=== PATIENT | male | born 1980 | race Caucasian/White ===

== ENCOUNTER 2016-04-26 20:16 | Emergency (ER) | payer BC ==
[2016-04-26] MEDS ORDERED: Piperacillin/Tazobactam 4.5 GM in Sodium Chloride 0.9% 100 ML IV ONE (20:35)
--- NOTE | 2016-04-26 20:38 | EDM.PDOC ---
ED HPI GENERAL MEDICAL PROBLEM - General Stated Complaint: LACERATION LT INDEX FINGER Time Seen by Provider: 04/26/16 20:34 Source of Information: Reports: Patient History Limitations: Reports: No limitations - History of Present Illness INITIAL COMMENTS - FREE TEXT/NARRATIVE: HISTORY AND PHYSICAL: History of present illness: [] 35-year-old male with no significant past history now presents to the emergency department after laceration to the pad of his index finger. Patient's tetanus was more than 5 years ago. He tripped tried of present in the wall and was routed sticking out and it cut the tip of his finger per no other injury. [place] blood loss by history Review of systems: As per history of present illness and below otherwise all systems reviewed and negative. Past medical history: As per history of present illness and as reviewed below otherwise noncontributory. Surgical history: As per history of present illness and as reviewed below otherwise noncontributory. Social history: No reported history of drug or alcohol abuse. Family history: As per history of present illness and as reviewed below otherwise noncontributory. Physical exam: HEENT: Atraumatic, normocephalic, pupils reactive, negative for conjunctival pallor or scleral icterus, mucous membranes moist, throat clear, neck supple, nontender, trachea midline. Lungs: Clear to auscultation, breath sounds equal bilaterally, chest nontender. Heart: S1S2, regular, negative for clicks, rubs, or JVD. Abdomen: Soft, nondistended, nontender. Negative for masses or hepatosplenomegaly. Negative for costovertebral tenderness. Pelvis: Stable nontender. Genitourinary: Deferred. Rectal: Deferred. Extremities: Atraumatic, negative for cords or calf pain. Neurovascular unremarkable. Neuro: Awake, alert, oriented. Cranial nerves II through XII unremarkable. Cerebellum unremarkable. Motor and sensory unremarkable throughout. Exam nonfocal. Diagnostics: [] Therapeutics: [] Impression: [] Plan: [] Definitive disposition and diagnosis as appropriate pending reevaluation and review of above. Left 2-Index finger Pain Score (Numeric/FACES): 3 - Related Data Allergies Allergy/AdvReac Type Severity Reaction Status Date / Time No Known Allergies Allergy Verified 12/30/14 16:02 Home Meds: Home Meds . [No Known Home Meds] 04/26/16 [History] Past Medical History - Past Surgical History Other Male Surgeries/Procedures: vasectomy Social & Family History - Tobacco Use Smoking Status *Q: Light Tobacco Smoker Years of Tobacco use: 10 Packs/Tins Daily: 0.2 - Alcohol Use Days Per Week of Alcohol Use: 5 Number of Drinks Per Day: 2 Total Drinks Per Week: 10 - Recreational Drug Use Recreational Drug Use: No ED ROS GENERAL - Review of Systems Review Of Systems: See Below (Per history of present illness) ED EXAM, GENERAL - Physical Exam Exam: See Below (Per history of present illness) Course - Vital Signs Text/Narrative:: This with laceration. Confined as a flap wound to the pad of his left index finger. 4.2 centimeter total length oriented in a flap. Procedure: Repair of 4.2 cm laceration left index finger distal phalange palmar aspect. Digit anesthetized with 1% lidocaine with a digital block. Good anesthesia. Wound irrigated and repaired with 9 interrupted sutures of 5-0 Prolene. Patient tolerated well no complications good approximation and hemostasis. Sterile dressing applied. Patient aware to follow up with PCP for wound check in 2 days and suture removal in 10 days Last Recorded V/S: Last Vital Signs Temp 36.8 C 04/26/16 22:07 Pulse 63 04/26/16 22:07 Resp 16 04/26/16 22:07 BP 127/81 04/26/16 22:07 Pulse Ox 98 04/26/16 22:07 - Orders/Labs/Meds Orders: Active Orders 24 hr Category Date Time Status Vaccines to be Administered [RC] PER UNIT ROUTINE Care 04/26/16 20:53 Active Meds: Medications Discontinued Medications Generic Name Dose Route Start Last Admin Trade Name Deepti PRN Reason Stop Dose Admin Bacitracin 1 dose 04/26/16 20:52 04/26/16 21:45 Bacitracin Oint 1 Gm TOP 04/26/16 20:53 1 dose ONETIME ONE Administration Diphtheria/Tetanus/Acell Pertussis 0.5 ml 04/26/16 20:52 04/26/16 21:46 Adacel IM 04/26/16 20:53 0.5 ml .ONCE ONE Administration Piperacillin Sod/Tazobactam 100 mls @ 100 mls/hr 04/26/16 20:35 04/26/16 21: 59 Sod 4.5 gm/ Sodium Chloride IV 04/26/16 21:34 Not Given ONETIME ONE Lidocaine HCl 20 ml 04/26/16 20:52 04/26/16 21:45 Xylocaine 1% INJECT 04/26/16 20:53 20 ml ONETIME ONE Administration Departure - Departure Time of Disposition: 21:42 Disposition: Home, Self-Care 01 Condition: good Clinical Impression: Laceration Instructions: Laceration Care, Adult Referrals: PCP,None [Primary Care Provider] - Forms: ED Department Discharge Additional Instructions: Her laceration was repaired today with sutures that need to be removed in 10 days. Follow up with your doctor for a wound check in 2 days. Watch for signs of infection worsening redness increasing swelling and pus drainage. If these occur return to the emergency department or see your doctor immediately for reevaluation and further treatment including antibiotics as needed. Motrin and Tylenol as needed for pain. - My Orders Last 24 Hours: My Active Orders 04/26/16 20:53 Vaccines to be Administered [RC] PER UNIT ROUTINE - Assessment/Plan Last 24 Hours: My Active Orders 04/26/16 20:53 Vaccines to be Administered [RC] PER UNIT ROUTINE
[2016-04-26] MEDS ORDERED: Bacitracin Oint 1 GM U/D Packet TOP ONE (20:52)
[2016-04-26] MEDS ORDERED: Diphtheria,Pertussis(Acell),Tetanus Vaccine 0.5 ML Syringe IM ONE (20:52)
[2016-04-26] MEDS ORDERED: Lidocaine 1% 20 ML MDV INJECT ONE (20:52)
[2016-04-26 22:09] VITALS: BP 127/81
== END 2016-04-26 22:09 | disposition home or self-care (01) ==
LOC: MW.ED 20:16
DX: S61.211A Laceration without foreign body of left index finger without damage to nail, initial encounter (principal); Z23 Encounter for immunization; F17.210 Nicotine dependence, cigarettes, uncomplicated; W45.8XXA Other foreign body or object entering through skin, initial encounter
CPT/HCPCS: 12002; 90471; 90715; 99282; 99282-25

== ENCOUNTER 2017-02-20 07:23 | Day surgery (SDC) | payer BC ==
[2017-02-20] MEDS ORDERED: Bupivacaine 25%/EPINEPHrine/PF 30 ML ONE (07:26)
[2017-02-20] MEDS ORDERED: fentaNYL 100 MCG/2 ML SDV ONE (07:30)
[2017-02-20] MEDS ORDERED: Lidocaine 2% 5 ML SDV ONE ×2 (07:30→09:07)
[2017-02-20] MEDS ORDERED: Propofol 200 MG/20 ML SDV ONE ×2 (07:30→09:07)
[2017-02-20] MEDS ORDERED: Midazolam 1 MG/ML 2 ML SDV ONE (07:30)
[2017-02-20] MEDS ORDERED: Ketorolac 30 MG/ML SDV ONE (07:31)
[2017-02-20] MEDS ORDERED: Ondansetron 4 MG/2 ML SDV ONE (07:31)
--- NOTE | 2017-02-20 07:57 | PCM.PREANE ---
Preanesthetic Assessment - Anesthesia/Transfusion/Family Hx Anesthesia History: Prior Anesthesia Without Reaction Family History of Anesthesia Reaction: No Transfusion History: No Prior Transfusion(s) Intubation History: Unknown - Review of Systems General: No Symptoms Pulmonary: No Symptoms Cardiovascular: No Symptoms Gastrointestinal: No Symptoms, Nausea Other: Reports: None - Physical Assessment Height: 1.73 m Weight: 87.543 kg ASA Class: 1 Mental Status: Alert & Oriented x3 Airway Class: Mallampati = 2 Dentition: Reports: Normal Dentition Thyro-Mental Finger Breadths: 3 Mouth Opening Finger Breadths: 3 ROM/Head Extension: Full Lungs: Clear to Auscultation, Normal Respiratory Effort Cardiovascular: Regular Rate, Regular Rhythm - Allergies Allergies/Adverse Reactions: Allergies Allergy/AdvReac Type Severity Reaction Status Date / Time No Known Allergies Allergy Verified 02/17/17 13:23 - Blood Blood Available: Yes - Anesthesia Plan Pre-Op Medication Ordered: None - Acknowledgements Anesthesia Type Planned: MAC Pt an Appropriate Candidate for the Planned Anesthesia: Yes Alternatives and Risks of Anesthesia Discussed w Pt/Guardian: Yes Pt/Guardian Understands and Agrees with Anesthesia Plan: Yes PreAnesthesia Questionnaire Other HEENT History: wears glasses Neurological History: Reports: Concussion - Infectious Disease History Infectious Disease History: Reports: Chicken Pox - Past Surgical History HEENT Surgical History: Reports: Oral Surgery Other HEENT Surgeries/Procedures: wisdom teeth Male Surgical History: Reports: Vasectomy Musculoskeletal Surgical History: Reports: Other (See Below) Other Musculoskeletal Surgeries/Procedures:: surgical intervention for snake bite right hand - SUBSTANCE USE Smoking Status *Q: Current Every Day Smoker Tobacco Use Within Last Twelve Months: Smokeless Tobacco Days Per Week of Alcohol Use: 5 Number of Drinks Per Day: 2 Total Drinks Per Week: 10 Recreational Drug Use History: No - HOME MEDS Home Medications: Home Meds . [No Known Home Meds] 04/26/16 [History] - CURRENT (IN HOUSE) MEDS Current Meds: Current Medications Hydrocodone Bitart/Acetaminophen ([place] 325-5 Mg) 1 tab PO Q4H PRN PRN Reason: Pain Bupivacaine HCl/Epinephrine Bitart (Marcaine 0.25%/Epinephrine 1:200,000) 10 ml INJECT ONETIME ONE Stop: 02/20/17 08:01 Cefazolin Sodium/Dextrose 2 gm (/ Premix) 50 mls @ 100 mls/hr IV ONETIME ONE Stop: 02/20/17 08:29 Lactated Ringer's (Ringers, Lactated) 1,000 mls @ 125 mls/hr IV ASDIRECTED KATHIA Last Admin: 02/20/17 07:46 Dose: 125 mls/hr Discontinued Medications Fentanyl (Sublimaze) Confirm Administered Dose 100 mcg .ROUTE .STK-MED ONE Stop: 02/20/17 07:31 Bupivacaine HCl/Epinephrine Bitart (Sensorc Mpf 0.25%-Epi 1:[id number]) Confirm Administered Dose 30 mls @ as directed .ROUTE .STK-MED ONE Stop: 02/20/17 07:27 Ketorolac Tromethamine (Toradol) Confirm Administered Dose 30 mg .ROUTE .STK- MED ONE Stop: 02/20/17 07:32 Lidocaine (Xylocaine-Mpf 2%) Confirm Administered Dose 5 ml .ROUTE .STK-MED ONE Stop: 02/20/17 07:31 Midazolam HCl (Versed 1 Mg/Ml) Confirm Administered Dose 2 mg .ROUTE .STK-MED ONE Stop: 02/20/17 07:31 Ondansetron HCl (Zofran) Confirm Administered Dose 4 mg .ROUTE .STK-MED ONE Stop: 02/20/17 07:32 Propofol (Diprivan 20 Ml) Confirm Administered Dose 200 mg .ROUTE .STK-MED ONE Stop: 02/20/17 07:31
[2017-02-20] MEDS ORDERED: ceFAZolin 2 GM in Premix Bag 1 BAG IV ONE (08:00)
[2017-02-20] MEDS ORDERED: Lactated Ringers 1,000 ML IV SCH (08:00)
[2017-02-20] MEDS ORDERED: Acetaminophen/HYDROcodone 325-5 MG Tab PO PRN (08:00)
[2017-02-20] MEDS ORDERED: Bupivacaine 0.25%/EPINEPHrine 1:200,000 10 ML SDV INJECT ONE (08:00)
[2017-02-20] MEDS ORDERED: fentaNYL 100 MCG/2 ML SDV IVPUSH PRN (09:38)
[2017-02-20 12:13] VITALS: BP 124/72
--- NOTE | 2017-02-20 13:34 | PCM.OPNOTE ---
- General Post-Op/Procedure Note Date of Surgery/Procedure: 02/20/17 Operative Procedure(s): right carpal tunnel release Pre Op Diagnosis: right carpal tunnel syndrome Post-Op Diagnosis: Same Anesthesia Technique: Local, MAC Primary Surgeon: Sydnie Bowens Ocularist: Keli Loredo Complications: None Condition: Good Free Text/Narrative:: Intake & Output 02/19/17 02/20/17 02/20/17 23:59 07:59 15:59 Intake Total 1929 Balance 193
--- NOTE | 2017-02-23 23:55 | OR ---
SURGEON: ALBINA HELMS MD DATE OF PROCEDURE: 02/20/2017 PREOPERATIVE DIAGNOSIS: Carpal tunnel syndrome on the right. POSTOPERATIVE DIAGNOSIS: Carpal tunnel syndrome on the right. PROCEDURE: Right carpal tunnel release. TECHNICAL SME: IHSAN Hernandez. ANESTHESIA: Local MAC. INDICATIONS: Mr. Fam is a 36-year-old gentleman seen today for right carpal tunnel syndrome. Risks and benefits of release were discussed with him and he was in agreement to proceed. Risks were including, but not limited to, bleeding, infection, damage to underlying or overlying structures, possible need for future interventions, possible scarring. PROCEDURE IN DETAIL: After informed consent was obtained and placed on the chart, the patient was brought to the operating theater and laid in supine position. After adequate local MAC anesthetic was obtained, the area was prepped and draped and a time- out was completed to confirm side and site. Attention was then paid to exsanguination of the arm and tourniquet was insufflated to 200 mmHg. The dissection was then carried over the transverse carpal ligament through the skin and subcutaneous tissues until breached to the ligament. Dissection was then carried distally and proximally until complete release. The wound was irrigated, closed in a horizontal mattress fashion using a 5-0 nylon stitches after copious irrigation. The wound was then dressed with Xeroform, fluffs, and a Kerlix gauze dressing and a 2-inch John wrap. The patient tolerated this well. All counts and needles were correct at the end of the case. FOLLOWUP INSTRUCTIONS: The patient will see us in 10 to 14 days or sooner if any problems, questions, or concerns. He was given a prescription for pain control. HEGGTHE / HUSAML /[id number]
== END 2017-02-20 10:30 | disposition home or self-care (01) ==
LOC: MW.SDS 07:23
PROVIDERS: ATTEND Plastic Surgery
DX: G56.01 Carpal tunnel syndrome, right upper limb (principal); F17.210 Nicotine dependence, cigarettes, uncomplicated
CPT/HCPCS: 64721; J1885; J2250; J2405; J3010; J7120; 01810; J2704